=== PATIENT | male | born 1935 | race African-American/Black ===

== ENCOUNTER 2020-01-10 00:57 | Emergency (ER) | payer MEDICAID, MEDICARE ==
[~2020-01-10] VITALS: Ht 160 cm; Wt 87.0 kg
[~2020-01-10 00:57] MED LIST: AMLO10TA80 PO; BACL-141 PO; COLC0.6T66 PO; DUTA0.5C2 PO; GABA-290 PO; HYDR-519 PO; TAMS0.4C31 PO; VALS40TA4 PO
[2020-01-10] MEDS ORDERED: HYDROCODONE/ACETAMINOPHEN 5/325MG TABLET PO ONE (01:30)
[2020-01-10 08:15] VITALS: BP 155/79
== END 2020-01-10 08:30 | disposition home or self-care (01) ==
LOC: ER 00:57
DX: M25.512 Pain in left shoulder (principal); G89.29 Other chronic pain; R29.810 Facial weakness
CPT/HCPCS: 73030; 99283